=== PATIENT | male | born 1975 | race American Indian/Alaskan Native ===

== ENCOUNTER 2017-10-25 22:22 | Inpatient (IN) | payer SELFPAY ==
[2017-10-25] MEDS ORDERED: NITRO-BID 2% TP ONE (23:09)
--- NOTE | 2017-10-25 23:12 | Emergency Department Report ---
ED Chest Pain HPI - General Chief Complaint: Chest Pain Stated Complaint: CHEST PAIN Time Seen by Provider: 10/25/17 23:01 Source: patient, old records reviewed (no previous ekg or cardiac workup on record) Mode of arrival: Ambulatory Limitations: No Limitations - History of Present Illness Initial Comments: 42-year-old male with a past medical history of hypertension, asthma, morbid obesity, previous pulmonary embolism in 2011 after shoulder surgery, an episode of SVT in 2013 she successfully with adenosine is also complaints of chest pain 1 hour. Pain started bilateral wrists and watching TV and describes a constant , burning, an aching pain. Patient received aspirin 324 mg in route to the hospital via EMS reports the pain has decreased to 5/10 intensity at this time. Patient denies associated symptoms include shortness of breath, nausea, vomiting, diaphoresis, calf tenderness, or leg edema. Patient traveled on a time frequently and drives for about 4-6 hours at a time. Patient had a negative stress test and cardiac workup after 2013 SVT episode but denies Holter monitor placement. No recurrent SVT episodes reported. Patient presents with elevated blood pressure and states he's been compliant with his Norvasc 10 mg daily. - Related Data Home Medications Medication Instructions Recorded Confirmed Last Taken amLODIPine 10 mg PO DAILY 10/25/17 10/25/17 Unknown Allergies Allergy/AdvReac Type Severity Reaction Status Date / Time levofloxacin [From Levaquin] Allergy Hives Verified 10/25/17 22:59 Heart Score - HEART Score History: Moderately suspicious EKG: Non-specific Age: < 45 Risk factors: 1-2 risk factors Troponin: < normal limit HEART Score: 3 ED Review of Systems ROS: Stated complaint: CHEST PAIN Other details as noted in HPI Comment: All other systems reviewed and negative ED Past Medical Hx - Past Medical History Hx Hypertension: Yes Hx Pulmonary Embolism: Yes (2011 after shoulder surgery) Hx Asthma: Yes Additional medical history: Morbid Obesity - Surgical History Additional Surgical History: Left ACL, Right Shoulder, - Family History Family history: other (mom afib) - Social History Smoking Status: Never Smoker Substance Use Type: Marijuana - Medications Home Medications: Home Medications Medication Instructions Recorded Confirmed Last Taken Type amLODIPine 10 mg PO DAILY 10/25/17 10/25/17 Unknown History ED Physical Exam - General Limitations: No Limitations - Other Other exam information: General: No limitations, patient is alert in no acute distress Head exam: Atraumatic, normocephalic Eyes exam: Normal appearance, pupils equal reactive to light, extraocular movements intact ENT: Moist mucous membrane, normal oropharynx Neck exam: Normal inspection, full range of motion, no meningismus nontender Respiratory exam: Clear to auscultation bilateral, no wheezes, rales, crackles Cardiovascular: Normal rate and rhythm, normal heart sounds, chest wall nontender Abdomen: Soft, nondistended, and nontender, with normal bowel sounds, no rebound, or guarding Extremity: Full range of motion normal inspection no deformity, no calf tenderness or edema Back: Normal Inspection, full range of motion, no tenderness Neurologic: Alert, oriented x3, cranial nerves intact, no motor or sensory deficit Psychiatric: normal affect, normal mood Skin: Warm, dry, intact ED Course Vital Signs 10/25/17 10/25/17 10/25/17 22:50 23:00 23:02 Temperature 98.3 F Pulse Rate 86 82 Respiratory 20 15 15 Rate Blood Pressure 155/102 169/102 O2 Sat by Pulse 98 99 100 Oximetry 10/25/17 10/25/17 10/26/17 23:28 23:30 00:01 Temperature Pulse Rate 79 76 73 Respiratory 22 13 Rate Blood Pressure 169/102 143/89 133/85 O2 Sat by Pulse 98 96 Oximetry - Reevaluation(s) Reevaluation #1: 10/25/17 23:34 Nitropaste ordered for chest wall - Consultations Consultation #1: 10/25/17 23:19 case d/w Dr Graham cardiology, ekg reviewed, nothing acute requiring emergent intervention at this time. ROMERO score - Romero Score Age > 65: (0) No Aspirin use within the Past 7 Days: (0) No 3 or more CAD Risk Factors: (1) Yes 2 or more Angina events in past 24 hrs: (0) No Known CAD with more than 50% Stenosis: (0) No Elevated Cardiac Markers: (0) No ST Deviation Greater than 0.5mm: (0) No ROMERO Score: 1 ED Medical Decision Making - Lab Data Result diagrams: 10/25/17 23:24 10/25/17 23:24 Lab Results 10/25/17 10/25/17 10/25/17 Range/Units 23:24 23:24 23:24 WBC 5.4 (4.5-11.0) K/mm3 RBC 4.85 (3.65-5.03) M/mm3 Hgb 13.2 (11.8-15.2) gm/dl Hct 40.3 (35.5-45.6) % MCV 83 L (84-94) fl MCH 27 L (28-32) pg MCHC 33 (32-34) % RDW 14.1 (13.2-15.2) % Plt Count 216 (140-440) K/mm3 Lymph % (Auto) 43.7 H (13.4-35.0) % [place] % (Auto) 7.2 (0.0-7.3) % Eos % (Auto) 6.9 H (0.0-4.3) % Baso % (Auto) 1.3 (0.0-1.8) % Lymph # 2.4 (1.2-5.4) K/mm3 [place] # 0.4 (0.0-0.8) K/mm3 Eos # 0.4 (0.0-0.4) K/mm3 Baso # 0.1 (0.0-0.1) K/mm3 Seg Neutrophils % 40.9 (40.0-70.0) % Seg Neutrophils # 2.2 (1.8-7.7) K/mm3 PT 12.1 L (12.2-14.9) Sec. INR 0.86 L (0.87-1.13) APTT 29.0 (24.2-36.6) Sec. D-Dimer 229.63 (0-234) ng/mlDDU Sodium 139 (137-145) mmol/L Potassium 4.3 (3.6-5.0) mmol/L Chloride 102.0 (98-107) mmol/L Carbon Dioxide 26 (22-30) mmol/L Anion Gap 15 mmol/L BUN 16 (9-20) mg/dL Creatinine 1.0 (0.8-1.5) mg/dL Estimated GFR > 60 ml/min BUN/Creatinine Ratio 16 % Glucose 88 (75-100) mg/dL Calcium 8.9 (8.4-10.2) mg/dL Total Creatine Kinase 850 H (55-170) units/L CK-MB (CK-2) 5.5 H (0.0-4.0) ng/mL CK-MB (CK-2) Rel Index 0.6 (0-4) Troponin T < 0.010 (0.00-0.029) ng/mL Triglycerides (2-149) mg/dL Cholesterol (50-199) mg/dL LDL Cholesterol Direct (50-130) mg/dL HDL Cholesterol (40-59) mg/dL Cholesterol/HDL Ratio % //18 Range/Units 23:27 WBC (4.5-11.0) K/mm3 RBC (3.65-5.03) M/mm3 Hgb (11.8-15.2) gm/dl Hct (35.5-45.6) % MCV (84-94) fl MCH (28-32) pg MCHC (32-34) % RDW (13.2-15.2) % Plt Count (140-440) K/mm3 Lymph % (Auto) (13.4-35.0) % [place] % (Auto) (0.0-7.3) % Eos % (Auto) (0.0-4.3) % Baso % (Auto) (0.0-1.8) % Lymph # (1.2-5.4) K/mm3 [place] # (0.0-0.8) K/mm3 Eos # (0.0-0.4) K/mm3 Baso # (0.0-0.1) K/mm3 Seg Neutrophils % (40.0-70.0) % Seg Neutrophils # (1.8-7.7) K/mm3 PT (12.2-14.9) Sec. INR (0.87-1.13) APTT (24.2-36.6) Sec. D-Dimer (0-234) ng/mlDDU Sodium (137-145) mmol/L Potassium (3.6-5.0) mmol/L Chloride (98-107) mmol/L Carbon Dioxide (22-30) mmol/L Anion Gap mmol/L BUN (9-20) mg/dL Creatinine (0.8-1.5) mg/dL Estimated GFR ml/min BUN/Creatinine Ratio % Glucose (75-100) mg/dL Calcium (8.4-10.2) mg/dL Total Creatine Kinase (55-170) units/L CK-MB (CK-2) (0.0-4.0) ng/mL CK-MB (CK-2) Rel Index (0-4) Troponin T (0.00-0.029) ng/mL Triglycerides 153 H (2-149) mg/dL Cholesterol 206 H (50-199) mg/dL LDL Cholesterol Direct 150 H (50-130) mg/dL HDL Cholesterol 46 (40-59) mg/dL Cholesterol/HDL Ratio 4.47 % - EKG Data -: EKG Interpreted by Nh EKG shows normal: sinus rhythm, axis (qrs -32), QRS complexes (qrsd 96), ST-T waves (naf) Rate: normal - EKG Data When compared to previous EKG there are: previous EKG unavailable - Radiology Data Radiology results: report reviewed read By radiologist, cxr: Heart size upper limit of normal. No acute findings - Medical Decision Making Patient has several cardiac risk factors. Last stress test 4 years ago. EKG shows abnormalities suggestive of previous ischemia and without previous EKG available for comparison. D-dimer negative therefore CT angiogram not obtained. Patient be admitted to the hospital service for further cardiac workup. Seat aspirin prior to arrival in treating ED with Nitropaste. Initial trop negative - Differential Diagnosis PE, [place], unstable angina, GERD Critical Care Time: No Critical care attestation.: If time is entered above; I have spent that time in minutes in the direct care of this critically ill patient, excluding procedure time. ED Disposition Clinical Impression: Chest pain, Obesity, HTN (hypertension), Elevated cholesterol Disposition: OP ADMIT IP TO THIS HOSP Is pt being admited?: Yes Condition: Stable Time of Disposition: 00:21 (Dr Jose/hosp)
[2017-10-25 23:41] LABS: Basophils # (Auto) 0.1 K/mm3 (0.0-0.1); Basophils % (Auto) 1.3 % (0.0-1.8); Eosinophils # (Auto) 0.4 K/mm3 (0.0-0.4); Eosinophils % (Auto) 6.9 % (0.0-4.3); Hematocrit 40.3 % (35.5-45.6); Hemoglobin 13.2 gm/dl (11.8-15.2); Lymphocytes # (Auto) 2.4 K/mm3 (1.2-5.4); Lymphocytes % (Auto) 43.7 % (13.4-35.0); Mean Corpuscular HGB Conc 33 % (32-34); Mean Corpuscular Hemoglobin 27 pg (28-32); Mean Corpuscular Volume 83 fl (84-94); Monocytes # (Auto) 0.4 K/mm3 (0.0-0.8); Monocytes % (Auto) 7.2 % (0.0-7.3); Platelet Count 216 K/mm3 (140-440); Red Blood Count 4.85 M/mm3 (3.65-5.03); Red Cell Distribution Width 14.1 % (13.2-15.2)
[2017-10-25 23:47] LABS: INR 0.86 (0.87-1.13)
[2017-10-25 23:48] LABS: Creatine Kinase MB 5.5 ng/mL (0.0-4.0)
[2017-10-25 23:49] LABS: BUN/Creatinine Ratio 16; Blood Urea Nitrogen 16 mg/dL (9-20); Calcium 8.9 mg/dL (8.4-10.2); Hemolysis Index 5
[2017-10-26 00:04] LABS: Chol/HDL Ratio 4.47 %
--- NOTE | 2017-10-26 00:06 | XRay Report ---
FINAL REPORT EXAM: XR CHEST 1V AP HISTORY: Chest Pain COMPARISON: None available. FINDINGS: Frontal view(s) of the chest obtained. Heart upper limits of normal in size.. No gross consolidation or effusion. No pneumothorax. IMPRESSION: Heart upper limits of normal in size. Lungs are clear.
[2017-10-26] MEDS ORDERED: PROVENTIL IH PRN ×2 (01:39→01:54)
[2017-10-26 01:46] LABS: Amphetamine Screen,Urine PRESUMPTIVE NEGATIVE; Benzodiazepines Screen,Urine PRESUMPTIVE NEGATIVE; Cocaine Screen,Urine PRESUMPTIVE NEGATIVE; Methadone Screen,Urine PRESUMPTIVE NEGATIVE; Opiate Screen,Urine PRESUMPTIVE NEGATIVE
--- NOTE | 2017-10-26 01:52 | History and Physical Report ---
History of Present Illness Date of examination: 10/26/17 History of present illness: 42-year-old woman history of hypertension, asthma comes to the emergency room with complaints of chest pain. Pain is in the epigastric, feels like a dull pain, constant, intensity 7/10, no radiation, he cannot identify exacerbating factor. Pain better with IV narcotics. Denies nausea vomiting, diaphoresis, palpitation Review of systems Constitutional: no weight loss, chills Ears, eyes, nose, mouth and throat: no nasal congestion, no nasal discharge, no sinus pressure, no vision change, no red eye. Neck: No neck pain or rigidity. Cardiovascular: no chest pain, palpitation Respiratory: no cough, shortness of breath Gastrointestinal: no hematochezia Genitourinary : no dysuria, frequency , no hematuria Musculoskeletal: no joint swelling or muscle ache Integumentary: no rash, no pruritis Neurological: no parathesias, no numbness, no focal weakness Endocrine: no cold or heat intolerance, no polyuria or polydipsia Hematologic/Lymphatic: no easy bruising, no easy bleeding, no gland swelling Allergic/Immunologic: no urticaria, no angioedema. PAST MEDICAL HISTORY: hypertension, asthma PAST SURGICAL HISTORY: SOCIAL HISTORY: Social alcohol, tobacco, no drugs FAMILY HISTORY: Hypertension Medications and Allergies Allergies Allergy/AdvReac Type Severity Reaction Status Date / Time [facility] Allergy Hives Verified 10/25/17 22:59 Home Medications Medication Instructions Recorded Confirmed Last Taken Type amLODIPine 10 mg PO DAILY 10/25/17 10/25/17 Unknown History Active Meds: Active Medications Albuterol (Proventil) 2.5 mg IH TIDRT [facility] Albuterol (Proventil) 2.5 mg IH PRN PRN PRN Reason: Wheezing Last Admin: 10/26/17 01:44 Dose: 2.5 mg Exam - Physical Exam Narrative exam: Gen. appearance: Patient lying in bed, no apparent distress HEENT: Normocephalic, atraumatic, pupils equally round and reactive to light, extraocular movement intact, and no sclericterus,. No JVD or thyromegaly or nodule,neck supple, no carotid bruit ,mucous membranes moist, no exudate or erythema Heart: S1, S2, regular rate and rhythm Lungs: Clear bilaterally, breathing comfortable Abdomen: Positive bowel sounds, nontender, nondistended, no organomegaly Extremity: No edema, no cyanosis, clubbing Skin: No rash, nodules, warm, dry Neuro: Oriented 3, cranial nerves II-12 intact, speech is fluent, sensory intact - Constitutional Vitals: Temp Pulse Resp BP Pulse Ox 98.3 F 82 14 128/69 97 10/25/17 22:50 10/26/17 01:44 10/26/17 01:44 10/26/17 00:31 10/26/17 00:31 Results - Labs CBC & Chem 7: 10/25/17 23:24 10/25/17 23:24 Labs: Abnormal lab results 10/25/17 10/25/17 10/25/17 Range/Units 23:24 23:24 23:24 MCV 83 L (84-94) fl MCH 27 L (28-32) pg Lymph % (Auto) 43.7 H (13.4-35.0) % Eos % (Auto) 6.9 H (0.0-4.3) % PT 12.1 L (12.2-14.9) Sec. INR 0.86 L (0.87-1.13) Total Creatine Kinase 850 H (55-170) units/L CK-MB (CK-2) 5.5 H (0.0-4.0) ng/mL Triglycerides (2-149) mg/dL Cholesterol (50-199) mg/dL LDL Cholesterol Direct (50-130) mg/dL 10/25/17 Range/Units 23:27 MCV (84-94) fl MCH (28-32) pg Lymph % (Auto) (13.4-35.0) % Eos % (Auto) (0.0-4.3) % PT (12.2-14.9) Sec. INR (0.87-1.13) Total Creatine Kinase (55-170) units/L CK-MB (CK-2) (0.0-4.0) ng/mL Triglycerides 153 H (2-149) mg/dL Cholesterol 206 H (50-199) mg/dL LDL Cholesterol Direct 150 H (50-130) mg/dL - Imaging and Cardiology EKG: image reviewed Chest x-ray: report reviewed Assessment and Plan Assessment Chest pain Asthma Hypertension Plan Admit to medicine Check cardiac enzymes, stress test IV morphine, aspirin, dvt prophalaxis
[2017-10-26] MEDS ORDERED: TYLENOL PO PRN (01:54)
[2017-10-26] MEDS ORDERED: ZOFRAN IV PRN (01:54)
[2017-10-26] MEDS ORDERED: MORPHINE IV PRN (01:54)
[2017-10-26] MEDS ORDERED: SODIUM CHLORIDE FLUSH SYRINGE 10 ML IV PRN (01:54)
[2017-10-26 02:01] LABS: Cannabinoid Screen,Urine PRESUMPTIVE POSITIVE
[2017-10-26] MEDS ORDERED: APRESOLINE IV PRN (02:21)
[2017-10-26] MEDS ORDERED: PROVENTIL IH SCH (08:00)
[2017-10-26] MEDS ORDERED: LOVENOX SUB-Q SCH ×2 (10:00)
[2017-10-26] MEDS: SODIUM CHLORIDE FLUSH SYRINGE 10 ML IV SCH ×2 (10:21→21:30)
[2017-10-26] MEDS: BABY ASPIRIN PO SCH (10:21)
[2017-10-26] MEDS ORDERED: PLAVIX PO NR (10:27)
[2017-10-26] MEDS ORDERED: HEPARIN 10,000 UNITS/10 ML IV ONE (10:29)
--- NOTE | 2017-10-26 10:36 | Consultation ---
History of Present Illness Consult date: 10/26/17 Consult reason: chest pain History of present illness: The patient said 42-year-old man with morbid obesity and chronic hypertension. He was in managed on the outpatient by [facility], on amlodipine 10 mg. There is no prior cardiac history. He presented to the hospital yesterday evening with chest pain. He underwent emergency room evaluation and was admitted for chest pain workup. This morning, a cardiology consultation was requested for further assessment with regards to have borderline troponin elevation and the patient's morbidly obese status with respect to further cardiac workup. The patient has had no further chest pain and feels much better. On my review of his serial ECGs, I am concerned that his presenting ECG revealed hyperacute T waves in leads V1 through V3 suggesting a threatened acute injury pattern in the LAD distribution at that time. Follow-up routine ECG this morning shows the ST segments in those leads to have returned to baseline, and the T waves have also normalized. Past History Past Medical History: hypertension, other (morbid obesity) Medications and Allergies Allergies Allergy/AdvReac Type Severity Reaction Status Date / Time levofloxacin [From Levaquin] Allergy Hives Verified 10/25/17 22:59 Home Medications Medication Instructions Recorded Confirmed Last Taken Type amLODIPine 10 mg PO DAILY 10/25/17 10/25/17 Unknown History Active Meds: Active Medications Acetaminophen (Tylenol) 650 mg PO Q4H PRN PRN Reason: Pain MILD(1-3)/Fever >100.5/HILARIO Albuterol (Proventil) 2.5 mg IH TIDRT [facility] Last Admin: 10/26/17 07:34 Dose: 2.5 mg Albuterol (Proventil) 2.5 mg IH Q4HRT PRN PRN Reason: Shortness Of Breath Aspirin (Baby Aspirin) 81 mg PO QDAY [facility] Last Admin: 10/26/17 10:21 Dose: 81 mg Clopidogrel Bisulfate (Plavix) 300 mg PO ONCE ONE Stop: 10/26/17 10:28 Clopidogrel Bisulfate (Plavix) 75 mg PO QDAY [facility] Enoxaparin Sodium (Lovenox) 40 mg SUB-Q QDAY@1000 [facility] Last Admin: 10/26/17 10:21 Dose: 40 mg Heparin Sodium (Porcine) (Heparin 10,000 Units/10 Ml) 10,900 unit 60 unit/kg ( 90895 unit) IV ONCE ONE Stop: 10/26/17 10:30 Hydralazine HCl (Apresoline) 5 mg IV Q6HR PRN PRN Reason: Hypertension Heparin Sodium/Sodium Chloride (Heparin/ 0.45% Nacl-25,000 Unit/500 Ml) 25,000 unit in 500 mls @ 54.39 mls/hr IV TITRATE VICENTA; Protocol Sodium Chloride (Nacl 0.9% 500 Ml) 500 mls @ 75 mls/hr IV DIRECT VICENTA Stop: 10/26/17 17:39 Lisinopril (Zestril) 5 mg PO QDAY [facility] Metoprolol Tartrate (Lopressor) 50 mg PO BID [facility] Morphine Sulfate (Morphine) 2 mg IV Q4H PRN PRN Reason: Pain, Moderate (4-6) Nitroglycerin (Nitro-Bid 2%) 1 inch TP QIDNTG VICENTA; Protocol Ondansetron HCl (Zofran) 4 mg IV Q8H PRN PRN Reason: Nausea And Vomiting Sodium Chloride (Sodium Chloride Flush Syringe 10 Ml) 10 ml IV BID [facility] Last Admin: 10/26/17 10:21 Dose: 10 ml Sodium Chloride (Sodium Chloride Flush Syringe 10 Ml) 10 ml IV PRN PRN PRN Reason: LINE FLUSH Review of Systems Cardiovascular: chest pain, shortness of breath, no orthopnea, no palpitations, no rapid/irregular heart beat, no edema, no syncope, no lightheadedness Physical Examination Vital Signs Temp Pulse Resp BP Pulse Ox 98.3 F 86 20 155/102 98 10/25/17 22:50 10/25/17 22:50 10/25/17 22:50 10/25/17 22:50 10/25/17 22:50 General appearance: no acute distress, obese HEENT: Positive: PERRL Neck: Positive: neck supple Cardiac: Positive: Reg Rate and Rhythm Lungs: Positive: Decreased Breath Sounds Neuro: Positive: Grossly Intact Abdomen: Positive: Soft Male genitourinary: Positive: deferred Skin: Positive: Clear Extremities: Absent: edema Results 10/25/17 23:24 10/25/17 23:24 Cardiac Enzymes 10/25/17 Range/Units 23:24 CK-MB (CK-2) 5.5 H (0.0-4.0) ng/mL Coagulation 10/25/17 Range/Units 23:24 PT 12.1 L (12.2-14.9) Sec. INR 0.86 L (0.87-1.13) APTT 29.0 (24.2-36.6) Sec. Lipids 10/25/17 Range/Units 23:27 Triglycerides 153 H (2-149) mg/dL Cholesterol 206 H (50-199) mg/dL HDL Cholesterol 46 (40-59) mg/dL Cholesterol/HDL Ratio 4.47 % CBC 10/25/17 Range/Units 23:24 WBC 5.4 (4.5-11.0) K/mm3 RBC 4.85 (3.65-5.03) M/mm3 Hgb 13.2 (11.8-15.2) gm/dl Hct 40.3 (35.5-45.6) % Plt Count 216 (140-440) K/mm3 Lymph # 2.4 (1.2-5.4) K/mm3 [place] # 0.4 (0.0-0.8) K/mm3 Eos # 0.4 (0.0-0.4) K/mm3 Baso # 0.1 (0.0-0.1) K/mm3 Comprehensive Metabolic Panel 10/25/17 Range/Units 23:24 Sodium 139 (137-145) mmol/L Potassium 4.3 (3.6-5.0) mmol/L Chloride 102.0 (98-107) mmol/L Carbon Dioxide 26 (22-30) mmol/L BUN 16 (9-20) mg/dL Creatinine 1.0 (0.8-1.5) mg/dL Glucose 88 (75-100) mg/dL Calcium 8.9 (8.4-10.2) mg/dL EKG interpretations - Telemetry EKG Rhythm: Sinus Rhythm Assessment and Plan - Patient Problems (1) Acute coronary syndrome Current Visit: Yes Status: Acute Plan to address problem: 42-year-old man with acute coronary syndrome, established by exertional chest pain and anteroseptal hyperacute T waves on his presenting ECG. The patient is currently chest pain-free, looks and feels well and his ECG has normalized. Recommend intravenous heparin, topical nitrates, oral beta blockers, aspirin and a Plavix load. Recommend transfer to CCU, and a cardiac catheterization will be scheduled for tomorrow morning.
[2017-10-26] MEDS ORDERED: HEPARIN/ 0.45% NACL-25,000 UNIT/500 ML 25,000 UNIT/500 ML BAG IV SCH (11:00)
[2017-10-26] MEDS ORDERED: NACL 0.9% 500 ML 500 ML IV SCH (11:00)
--- NOTE | 2017-10-26 11:34 | Progress Note ---
Assessment and Plan Assessment and plan: Mr. Berry is a 42 yo man with a history of hypertension, asthma, morbid obesity , 398lbs, PE after surgery and SVT who pw CP. Initially troponin T was negative x 2. Initially EKG had ST elevations in lateral leads but no reciprocal changes , Dr. Nam was notified per ER physician's documentation. Now, pt is CP. Troponin T mildly increased to 0.04 (normal <0.029). Stress was ordered yesterday but canceled due to size. I contacted and d/w Dr. Allen. -ACS: treat with ntg, iv heparin drip, bblocker, asa and statin, move to CCU per Dr. Allen, Cardiac cath in am, plavix loading dose -Acute diastolic heart failure,poa suspected due to above: treat with ntg, i ordered ECHO. -Morbid Obesity, less than 400lbs: lifestyle modifications -Asthma: treat with nebs prn -DVT prophylaxis: heparin drip -H/o PE after surgery, negative D-dimer, so no CTA chest or ble doppler ordered Move to ICU, d/w Dr. Thomas CCT 40 minutes History Interval history: Patient was seen and examined. Follow-up on current diagnosis of chest pains, resolved now. Overnight uneventful. Patient denies any chest pain, shortness breath, nausea/vomiting or severe headaches. Imaging, nursing note, chart, labs and old chart reviewed. Discussed with patient. Hospitalist Physical - Physical exam Narrative exam: BMI 54.2, 181.3 Kg GEN: WDWN, NAD, Awake, Alert, Orientated x 3 HEENT: NCAT, EOMI, PERRL, OP Clear NECK: supple, no adenopathy, no thyromegaly, equivocal JVD b/c thick neck CVS/HEART: RRR, normal S1S2, pulses present bilaterally CHEST/LUNGS: CTA B, Symmetrical chest expansion, good air entry bilaterally, ntg on cw GI/Abdomen: soft, NTND, good bowel sounds, no guarding or rebound /Bladder: no suprapubic tenderness, no CVA or paraspinal tenderness EXT/Skin: 2+ pitting leg edema MSK: FROM x 4 Neuro: CN 2-12 grossly intact, no new focal deficits Psych: calm - Constitutional Vitals: Temp Pulse Resp BP Pulse Ox 97.8 F 68 16 136/86 98 10/26/17 08:00 10/26/17 07:37 10/26/17 07:37 10/26/17 07:35 10/26/17 07:37 General appearance: Present: no acute distress, obese Results - Labs CBC & Chem 7: 10/25/17 23:24 10/25/17 23:24 Labs: Laboratory Last Values WBC 5.4 K/mm3 (4.5-11.0) 10/25/17 23: RBC 4.85 M/mm3 (3.65-5.03) 10/25/17 23:24 Hgb 13.2 gm/dl (11.8-15.2) 10/25/17 23:24 Hct 40.3 % (35.5-45.6) 10/25/17 23: MCV 83 fl (84-94) L 10/25/17 23:24 MCH 27 pg (28-32) L 10/25/17 23:24 MCHC 33 % (32-34) 10/25/17 23:24 RDW 14.1 % (13.2-15.2) 10/25/17 23:24 Plt Count 216 K/mm3 (140-440) 10/25/17 23:24 Lymph % (Auto) 43.7 % (13.4-35.0) H 10/25/17 23:24 [place] % (Auto) 7.2 % (0.0-7.3) 10/25/17 23:24 Eos % (Auto) 6.9 % (0.0-4.3) H 10/25/17 23:24 Baso % (Auto) 1.3 % (0.0-1.8) 10/25/17 23:24 Lymph # 2.4 K/mm3 (1.2-5.4) 10/25/17 23:24 [place] # 0.4 K/mm3 (0.0-0.8) 10/25/17 23:24 Eos # 0.4 K/mm3 (0.0-0.4) 10/25/17 23:24 Baso # 0.1 K/mm3 (0.0-0.1) 10/25/17 23: Seg Neutrophils % 40.9 % (40.0-70.0) 06/23/18 23:24 Seg Neutrophils # 2.2 K/mm3 (1.8-7.7) 10/25/17 23:24 PT 12.1 Sec. (12.2-14.9) L 10/25/17 23:24 INR 0.86 (0.87-1.13) L 10/25/17 23:24 APTT 29.0 Sec. (24.2-36.6) 10/25/17 23:24 D-Dimer 229.63 ng/mlDDU (0-234) 10/25/17 23:24 Sodium 139 mmol/L (137-145) 10/25/17 23:24 Potassium 4.3 mmol/L (3.6-5.0) 10/25/17 23:24 Chloride 102.0 mmol/L (98-107) 10/25/17 23:24 Carbon Dioxide 26 mmol/L (22-30) 10/25/17 23:24 Anion Gap 15 mmol/L 10/25/17 23:24 BUN 16 mg/dL (9-20) 10/25/17 23:24 Creatinine 1.0 mg/dL (0.8-1.5) 10/25/17 23:24 Estimated GFR > 60 ml/min 10/25/17 23:24 BUN/Creatinine Ratio 16 % 10/25/17 23:24 Glucose 88 mg/dL (75-100) 10/25/17 23:24 Calcium 8.9 mg/dL (8.4-10.2) 10/25/17 23:24 Total Creatine Kinase 850 units/L (55-170) H 10/25/17 23:24 CK-MB (CK-2) 5.5 ng/mL (0.0-4.0) H 10/25/17 23:24 CK-MB (CK-2) Rel Index 0.6 (0-4) 10/25/17 23:24 Troponin T 0.040 ng/mL (0.00-0.029) H D 10/26/17 03:46 Triglycerides 153 mg/dL (2-149) H 10/25/17 23:27 Cholesterol 206 mg/dL (50-199) H 10/25/17 23:27 LDL Cholesterol Direct 150 mg/dL (50-130) H 10/25/17 23:27 HDL Cholesterol 46 mg/dL (40-59) 10/25/17 23:27 Cholesterol/HDL Ratio 4.47 % 10/25/17 23:27 Urine Opiates Screen Presumptive negative 10/26/17 00:45 Urine Methadone Screen Presumptive negative 10/26/17 00:45 Ur Barbiturates Screen Presumptive negative 10/26/17 00:45 Ur Phencyclidine Scrn Presumptive negative 10/26/17 00:45 Ur Amphetamines Screen Presumptive negative 10/26/17 00:45 U Benzodiazepines Scrn Presumptive negative 10/26/17 00:45 Urine Cocaine Screen Presumptive negative 10/26/17 00:45 U Marijuana (THC) Screen Presumptive positive 10/26/17 00:45 Drugs of Abuse Note Disclamer 10/26/17 00:45
[2017-10-26] MEDS: LOPRESSOR PO SCH ×2 (12:19→21:27)
[2017-10-26] MEDS: ZESTRIL PO SCH (12:19)
[2017-10-26 12:40] LABS: Hemoglobin 12.8 gm/dl (11.8-15.2)
[2017-10-26 12:52] LABS: INR 0.91 (0.87-1.13); Partial Thromboplastin Time 29.2 Sec. (24.2-36.6)
[2017-10-26] MEDS: NITRO-BID 2% TP SCH ×2 (15:35→19:15)
[2017-10-27 05:31] LABS: Hematocrit 40.2 % (35.5-45.6); Mean Corpuscular HGB Conc 32 % (32-34); Mean Corpuscular Hemoglobin 27 pg (28-32); Mean Corpuscular Volume 84 fl (84-94); Platelet Count 198 K/mm3 (140-440); Red Blood Count 4.78 M/mm3 (3.65-5.03); Red Cell Distribution Width 14.1 % (13.2-15.2)
[2017-10-27 05:38] LABS: INR 0.87 (0.87-1.13)
[2017-10-27 05:39] LABS: Partial Thromboplastin Time 30.9 Sec. (24.2-36.6)
[2017-10-27 06:36] LABS: Band Neutrophils # (Manual) 0.1 K/mm3; Basophils % (Manual) 0 % (0.0-1.8); Total Cells Counted 100
[2017-10-27 06:37] LABS: Platelet Estimate Consistent w Auto
[2017-10-27 06:41] LABS: BUN/Creatinine Ratio 14; Blood Urea Nitrogen 17 mg/dL (9-20); Hemolysis Index 6
[2017-10-27] MEDS ORDERED: BABY ASPIRIN ONE (08:04)
[2017-10-27] MEDS ORDERED: PLAVIX ONE (08:05)
[2017-10-27 08:14] VITALS: BP 138/97
[2017-10-27] MEDS: BABY ASPIRIN PO SCH ×2 (08:24→11:57)
[2017-10-27] MEDS: PLAVIX PO SCH ×2 (08:25→11:57)
[2017-10-27] MEDS ORDERED: NACL 0.9% 500 ML 500 ML ONE (08:29)
[2017-10-27] MEDS ORDERED: CALAN ONE (08:55)
[2017-10-27] MEDS ORDERED: HEPARIN/NS 5000 UNIT/500ML(CATH LAB) 1,000 ML IR ONE (08:55)
[2017-10-27] MEDS ORDERED: NITROGLYCERIN SYRINGE 3 ML ONE (08:55)
[2017-10-27] MEDS ORDERED: XYLOCAINE 2% INFILTRATI ONE (08:55)
[2017-10-27] MEDS ORDERED: HEPARIN 10,000 UNITS/10 ML ONE (08:55)
[2017-10-27] MEDS: SUBLIMAZE ONE ×2 (10:23→10:31)
[2017-10-27] MEDS: VERSED ONE ×2 (10:23→10:31)
--- NOTE | 2017-10-27 11:04 | Event Note ---
Date: 10/27/17 Cardiac catheterization completed via the right radial approach, no complications. We found an occluded, very small caliber less than 1.5 mm ramus branch is likely the infarct lesion. Recommended for medical therapy, not suitable for intervention. Otherwise large caliber vessels including the LAD and diagonal branches, circumflex and its obtuse marginal branches as well as a large dominant right coronary artery all widely patent without significant lesions. Left ventricular ejection fraction 55-60%. Recommend medical therapy including beta blockers, oral antiplatelet therapy and statins. Continue lisinopril for blood pressure management. The patient is stable for discharge and outpatient follow-up.
--- NOTE | 2017-10-27 11:54 | Cardiac Catherization Report ---
REASON FOR PROCEDURE: The patient is a 42-year-old man who presented with acute coronary syndrome, characterized by transient, hyperacute T waves in leads V1 and V2. Cardiac catheterization was recommended. PROCEDURES PERFORMED: 1. Left heart catheterization. 2. Selective left and right coronary angiography. 3. Left ventricle angiography. SEDATION: Sedation time start 10:23 a.m., sedation time ended 10:43 a.m. PROCEDURE: The patient was prepped and draped in a sterile fashion after informed consent. The right radial cath site was prepped and draped after a negative Jerry's test. The right radial artery was entered using Seldinger technique, followed by placement of a 6-Indonesian hydrophilic sheath. Routine radial cocktail was administered via the sheath. Left coronary angiography was performed using a #3.5 left Siomara catheter. A #2 right Amplatz was used for right ventricle angiography. The pigtail catheter was used for left ventricular catheterization and angiography. The catheters were removed, sheath removed, and hemostasis achieved using a TR band. The patient was returned to the postprocedure unit in stable condition. There were no complications. FINDINGS: HEMODYNAMICS: Left ventricular end diastolic pressure was 28, following coronary angiography. Ascending aortic pressure was 147/103. There was no significant pressure gradient on pullback across the aortic valve. CORONARY ANGIOGRAPHY: The left main coronary artery was free of significant disease. The left anterior descending artery and its diagonal branches were large caliber vessels that contained mild luminal irregularities, no significant lesions. A small caliber, less than 1.5 mm ramus branch appeared occluded in its mid segment, with a slow antegrade flow. This appeared to be the infarct related lesion. The circumflex artery and its obtuse marginal branches were again large caliber vessels that contained minimal irregularities. No significant lesions. The right coronary artery was another large caliber system, was dominant, free of significant disease. There was well preserved left ventricular systolic function with left ventricular ejection fraction 55-60%. No significant regional wall motion abnormalities were noted in the GONZALES projection. CONCLUSION: 1. Occluded small caliber, less than 1.5 mm ramus intermedius is likely the infarct related lesion, not suitable for coronary intervention and recommended for medical therapy. 2. Otherwise large caliber vessels including the LAD, circumflex, and right coronary systems appear widely patent without significant lesions. 3. Normal left ventricular systolic function, ejection fraction 55-60%. RECOMMENDATION: Medical therapy and aggressive risk factor modification. JOB# [id number] JUNG/PALAK
[2017-10-27] MEDS: NITRO-BID 2% TP SCH ×2 (11:55→14:31)
[2017-10-27] MEDS: LOPRESSOR PO SCH (11:57)
[2017-10-27] MEDS: ZESTRIL PO SCH (11:58)
[2017-10-27] MEDS: SODIUM CHLORIDE FLUSH SYRINGE 10 ML IV SCH (11:58)
[2017-10-27] MEDS ORDERED: NACL 0.9% 1000 ML 1,000 ML IV SCH (12:00)
--- NOTE | 2017-10-27 13:45 | Discharge Summary ---
Providers - Providers Date of Admission: 10/26/17 02:35 Date of discharge: 10/27/17 Attending physician: SHIVANI STEINER 10/26/17 09:38 Consult to Physician [CONS] Routine Comment: Consulting Provider: JOHN CARRION Physician Instructions: Reason For Exam: chest pains, elevated troponin 10/27/17 11:04 Consult to Cardiac Rehabilitation [CONS] Routine Reason For Exam: Cardiac Rehab Evaluation Primary care physician: DEVICE ENGINEER Hospitalization Condition: Stable Hospital course: Mr. Berry is a 42 yo man with a history of hypertension, asthma, morbid obesity , 398lbs, PE after surgery and SVT who pw CP. Initially troponin T was negative x 2. Initially EKG had ST elevations in lateral leads but no reciprocal changes , Dr. Nam was notified per ER physician's documentation. Now, pt is CP. Troponin T mildly increased to 0.04 (normal <0.029). Stress was ordered yesterday but canceled due to size. I contacted and d/w Dr. Carrion. -ACS with NSTEMI most likely: treat with ntg, iv heparin drip, bblocker, asa and statin, move to CCU per Dr. Carrion, Cardiac cath in am, plavix loading dose -Acute diastolic heart failure,poa suspected due to above: treat with ntg, i ordered ECHO, canceled by Dr. Carrion. -Morbid Obesity, less than 400lbs: lifestyle modifications -Dyslipidemia, new: add statin -Asthma: treat with nebs prn -DVT prophylaxis: heparin drip -H/o PE after surgery, negative D-dimer, so no CTA chest or ble doppler ordered 10/27/17 "Cardiac catheterization completed via the right radial approach, no complications. We found an occluded, very small caliber less than 1.5 mm ramus branch is likely the infarct lesion. Recommended for medical therapy, not suitable for intervention. Otherwise large caliber vessels including the LAD and diagonal branches, circumflex and its obtuse marginal branches as well as a large dominant right coronary artery all widely patent without significant lesions. Left ventricular ejection fraction 55-60%." per Dr. Carrion Disposition: [id number] TO HOME OR SELFCARE Time spent for discharge: 35 minutes Core Measure Documentation - Palliative Care Palliative Care/ Comfort Measures: Not Applicable - Core Measures Any of the following diagnoses?: acute CT - VTE Discharge Requirements Deep Vein Thrombosis/Pulmonary Embolism Present on Admission: No Has pt received <5 days of overlap therapy or INR<2.0: No Anticoagulant overlap therapy prescribed at discharge: No Contraindication No Overlap Therapy order at DC: Not Indicated - Acute CT Discharge Requirements Aspirin at discharge: Yes JOVANNY/ARB for LVSD if EF <40%: Yes Beta gagandeep at discharge: Yes Statin for LDL = or >100 mg/dl on DC: Yes Exam - Physical Exam Narrative exam: BMI 54.2, 181.3 Kg GEN: WDWN, NAD, Awake, Alert, Orientated x 3 HEENT: NCAT, EOMI, PERRL, OP Clear NECK: supple, no adenopathy, no thyromegaly, equivocal JVD b/c thick neck CVS/HEART: RRR, normal S1S2, pulses present bilaterally CHEST/LUNGS: CTA B, Symmetrical chest expansion, good air entry bilaterally, ntg on cw GI/Abdomen: soft, NTND, good bowel sounds, no guarding or rebound /Bladder: no suprapubic tenderness, no CVA or paraspinal tenderness EXT/Skin: 2+ pitting leg edema MSK: FROM x 4 Neuro: CN 2-12 grossly intact, no new focal deficits Psych: calm - Constitutional Vitals: Temp Pulse Resp BP Pulse Ox 98.3 F 75 20 138/97 94 10/27/17 08:11 10/27/17 10:00 10/27/17 08:11 10/27/17 08:11 10/27/17 08:11 Plan Activity: other (no strenous activity until cleared by Cardiology, make first available appointment) Diet: low salt Special Instructions: record daily BP diary Follow up with: JOHN CARRION MD [Staff Physician] - 7 Days [facility] [Provider Group] - 7 Days Forms: CardCath PCI D/C Instructions Prescriptions: AtorvaSTATin [Lipitor] 40 mg PO QHS #30 tablet ALBUTEROL Inhaler [ProAir HFA Inhaler] 2 puff IH QID PRN #1 unit PRN Reason: Shortness Of Breath Aspirin [Aspirin BABY CHEW TAB] 81 mg PO QDAY #30 tab.chew Lisinopril [Zestril TAB] 10 mg PO QDAY #30 tablet Metoprolol [Lopressor TAB] 25 mg PO BID #60 tablet
[2017-10-27] MEDS ORDERED: ZESTRIL PO SCH (14:00)
== END 2017-10-27 16:08 | disposition home or self-care (01) | DRG 280 ==
LOC: ED 22:22 → 4A 10-26 02:35
PROVIDERS: ADMIT Internal Medicine; ATTEND Internal Medicine
PROC: 4A023N7 Measurement of Cardiac Sampling and Pressure, Left Heart, Percutaneous Approach (ICD-10-PCS; principal; 2017-10-27)
PROC: B2111ZZ Fluoroscopy of Multiple Coronary Arteries using Low Osmolar Contrast (ICD-10-PCS; 2017-10-27)
PROC: B2151ZZ Fluoroscopy of Left Heart using Low Osmolar Contrast (ICD-10-PCS; 2017-10-27)
DX: I21.4 Non-ST elevation (NSTEMI) myocardial infarction (principal); I50.31 Acute diastolic (congestive) heart failure; Z68.43 Body mass index [BMI] 50.0-59.9, adult; E66.01 Morbid (severe) obesity due to excess calories; I11.0 Hypertensive heart disease with heart failure; E78.5 Hyperlipidemia, unspecified; F12.90 Cannabis use, unspecified, uncomplicated; J45.909 Unspecified asthma, uncomplicated; Z88.1 Allergy status to other antibiotic agents; Z79.899 Other long term (current) drug therapy; Z82.49 Family history of ischemic heart disease and other diseases of the circulatory system; Z86.711 Personal history of pulmonary embolism
CPT/HCPCS: 36415; 71045; 80048; 80061; 80307; 82550; 82553; 84484; 85007; 85014; 85018; 85025; 85049; 85379; 85520; 85610; 85730; 93005; 93010; 93458; 94640; A9270-GY; C1894; J1644; J1650; J2250; J3010; J7040; Q9967